=== PATIENT | female | born 1955 | race African-American/Black ===

== ENCOUNTER 2016-06-21 16:28 | Emergency (ER) | payer OTHER ==
[~2016-06-21] VITALS: Ht 165.1 cm; Wt 83.0 kg
[2016-06-21] MEDS ORDERED: NKM (16:37)
[2016-06-21 18:03] VITALS: BP 156/88
[2016-06-21] MEDS ORDERED: METFORMIN HCL500 M1 ORAL (18:09)
[2016-06-21] MEDS ORDERED: NORVASC5 MG ORAL (18:09)
[2016-06-21 18:17] VITALS: BP 156/88
--- NOTE | 2016-06-22 21:55 | Emergency Room Report ---
History of Present Illness General Chief Complaint: Hypertension Source: Patient Present Illness HPI 61 YO F presents with elevated BP. No prior history of HTN but states "when I was at [facility] they gave me something for BP" but patient left AMA and stated she didnt get any Rx. She also states she thinks she was told she is diabetic but also didnt get anything for that. Denies headache, chest pain, SOB, abd pain, nausea/vomiting, polydipsia/polyuria, dysuria. Allergies: Coded Allergies: No Known Allergies (Unverified , 06/21/16) Patient History Past Medical History: DM, HTN Past Surgical History: none Pertinent Family History: none Social History: Denies: alcohol use, drug use, smoking Now: No Immunizations: UTD Reviewed Nursing Documentation: PMH: Agreed, PSxH: Agreed Nursing Documentation-PMH Hx Asthma: Yes Review of Systems All Other Systems: negative except mentioned in HPI Physical Exam Vital Signs Date Time Temp Pulse Resp B/P Pulse Ox O2 Delivery O2 Flow Rate FiO2 06/21/16 16:33 98.1 94 16 161/97 100 Room Air Sp02 EP Interpretation: reviewed, abnormal General Appearance: normal inspection, well appearing, no apparent distress, alert, GCS 15, non-toxic Head: normocephalic, atraumatic Eyes: bilateral eye EOMI, bilateral eye PERRL ENT: normal ENT inspection, hearing grossly normal, normal voice Neck: normal inspection, full range of motion, supple, no bony tend Respiratory: normal inspection, lungs clear, normal breath sounds, no respiratory distress, no retraction, no wheezing Cardiovascular #1: regular rate, rhythm, no edema Gastrointestinal: normal inspection, normal bowel sounds, non tender, soft, no guarding, no hernia Genitourinary: no CVA tenderness Musculoskeletal: normal inspection, back normal, normal range of motion, Ghassan' s Sign negative Neurologic: normal inspection, alert, oriented x3, responsive, driver starting gate III-XII nml as tested, motor strength/tone normal, speech normal Psychiatric: normal inspection, judgement/insight normal, mood/affect normal Skin: normal inspection, normal color, no rash Medical Decision Making Diagnostic Impression: Primary Impression: Diabetes Additional Impression: Hypertension Qualified Codes: I10 - Essential (primary) hypertension ER Course 61 YO F with elevated BP and elevated glucose. Asymptomatic. No signs of focal neuro deficits and low suspicion for end-organ damage. BP improved with PO norvasc Elevated glucose in ED >200; Will also start patient on Metformin Patient does NOT currently have a PMD so will Rx Metormin and Novasc with strong recommendation for PMD followup Patient's daughter is bedside, also understands importance of followup Last Vital Signs Date Time Temp Pulse Resp B/P Pulse Ox O2 Delivery O2 Flow Rate FiO2 06/21/16 18:17 98.1 76 16 156/88 100 Room Air Status: improved Disposition: HOME, SELF-CARE Condition: Improved Scripts Amlodipine Besylate (Norvasc) 5 Mg Tablet 5 MG ORAL DAILY for 30 Days, #30 TAB Prov: DEVENDRA SINGH M.D. 06/21/16 Metformin Hcl* (METFORMIN HCL*) 500 Mg Tablet 500 MG ORAL TWICE A DAY for 30 Days, #60 TAB Prov: DEVENDRA SINGH M.D. 06/21/16 Patient Instructions: Hyperglycemia, [id number]-[id number], Hypertension, [id number] Additional Instructions: - Take Norvasc 5mg every for high BP - Take Metformin twice daily for DM - Follow up with a primary care doctor in 2-3 days DEVENDRA SINGH M.D. Jun 22, 2016 21:55
--- NOTE | 2016-07-11 14:22 | Cardiology Report ---
APPROVED REPORT EKG Measurement Heart [id number] CA 150P65 [id number] Normal sinus rhythm Rightward axis Borderline ECG
== END 2016-06-21 18:37 | disposition home or self-care (01) ==
LOC: EMR 18:04
DX: I10 Essential (primary) hypertension (principal); E11.9 Type 2 diabetes mellitus without complications; J45.909 Unspecified asthma, uncomplicated
CPT/HCPCS: 82962; 93005; 99284

== ENCOUNTER 2017-05-29 15:04 | Emergency (ER) | payer MEDICAID, OTHER ==
[~2017-05-29] VITALS: Ht 165.1 cm; Wt 84.4 kg
[~2017-05-29 15:04] MED LIST: METFORMIN HCL500 M1 ORAL; NKM; NORVASC5 MG ORAL
--- NOTE | 2017-05-29 16:26 | Emergency Room Report ---
History of Present Illness General Chief Complaint: Headache Source: Patient, Family Member - Daughter Present Illness HPI 62-year-old female patient presents ER complaining of headache and breathing difficulty. Patient also complains of purulent cough. Patient reports symptoms have been present since last ; states she was seen in [facility] for diabetes, hypertension, atrial fibrillation, CHF. States she was discharged with medications. Patient reports breathing symptoms have persisted since that time. Patient also complains of dizziness. Denies visual changes, loss of vision, hearing changes, ringing in ears. Reports history of asthma; denies use of inhaler. Patient complains of wheezing. Reports use of nasal spray at home for congestion; reports no relief of symptoms. Reports history of diabetes; states she took insulin today; reports she does not have accucheck to monitor blood glucose because it broke. Patient denies fever, nausea, vomiting, rash. Allergies: Coded Allergies: No Known Allergies (Unverified , 06/21/16) Patient History Past Medical History: see triage record, CHF, AFib, asthma Immunizations: UTD Reviewed Nursing Documentation: PMH: Agreed, PSxH: Agreed Nursing Documentation-PMH Hx Hypertension: Yes Hx Asthma: Yes Hx Diabetes: Yes Review of Systems All Other Systems: negative except mentioned in HPI Physical Exam Vital Signs Date Time Temp Pulse Resp B/P (MAP) Pulse Ox O2 Delivery O2 Flow Rate FiO2 05/29/17 15:16 98.4 75 16 159/95 97 Room Air Sp02 EP Interpretation: reviewed, normal General Appearance: no apparent distress, alert, GCS 15, non-toxic Head: normocephalic, atraumatic Eyes: bilateral eye normal inspection, bilateral eye PERRL, bilateral eye EOMI ENT: hearing grossly normal, normal pharynx, no angioedema, normal voice, TMs + canals normal, uvula midline, nasal congestion Neck: full range of motion, supple/symm/no masses Respiratory: no rhonchi, no respiratory distress, no retraction, no accessory muscle use, wheezing - intermittent left lower lung Cardiovascular #1: regular rate, rhythm Gastrointestinal: normal bowel sounds, non tender, soft, non-distended, no guarding, no rebound Musculoskeletal: back normal, digits/nails normal, gait/station normal, normal range of motion, non-tender Neurologic: alert, oriented x3, responsive, plastic battery assembler III-XII nml as tested, motor strength/tone normal, sensory intact, speech normal Psychiatric: mood/affect normal Skin: no rash, warm/dry, palpation normal, well hydrated, normal turgor, other - 5cm lipoma thoracic back, no erythema, no draining, no TTP Lymphatic: no adenopathy Medical Decision Making PA Attestation Dr. Ivey is my supervising Physician whom patient management has been discussed with. Diagnostic Impression: Primary Impression: Upper respiratory infection Additional Impressions: Elevated brain natriuretic peptide (BNP) level Elevated blood sugar level ER Course Pt presents to ED c/o asthma symptoms. DDX considered but are not limited to asthma, viral URI, influenza, pneumonia, sinusitis Began cardiac workup VITAL SIGNS are WNL, patient is afebrile. ORDERS: None required at this time, diagnosis is clinical. ER COURSE: Labs below; results reviewed with patient; patient instructed to followup with primary care for abnormal results. Patient states understanding and agreement to treatment plan. Troponin negative EKG negative for atrial fibrillation CXR negative for acute disease. Following negative results patient given breathing treatment. Albuterol/Atrovent breathing treatment provided Following treatment patient states no longer having difficulty with breathing; complains of nasal congestion. Patient informed of continued use of Afrin spray can lead to rebound congestion. Patient states understanding. Patient is resting comfortably, in no acute distress. Patient seen and evaluated by Dr. Ivey, agrees to treatment plan. Meclizine provided for patient dizziness; patient reports improvement of symptoms following administration of medication. DISCHARGE: -Rx provided for Motrin; patient reports she does not like Tylenol. -Rx provided for Tamiflu -Rx provided for Promethazine Hcl At this time pt is stable for d/c to home. Patient is nontoxic appearing, in no acute distress, smiling and laughing. Patient to take medications as instructed Will provide with patient care instructions and any necessary prescriptions. Care plan and follow-up instructions provided. Patient instructed to follow-up with primary care provider in 3 - 5 days. Patient questions asked and answered. ER precautions given. Patient instructed to return to ER immediately for any new or worsening of symptoms including but not limited to increasing SOB, persistent fever. Labs Test 05/29/17 16:00 White Blood Count 5.7 K/UL (4.8-10.8) Red Blood Count 5.65 M/UL (4.20-5.40) Hemoglobin 12.4 G/DL (12.0-16.0) Hematocrit 39.2 % (37.0-47.0) Mean Corpuscular Volume 69 FL (80-99) Mean Corpuscular Hemoglobin 21.9 PG (27.0-31.0) Mean Corpuscular Hemoglobin Concent 31.6 G/DL (32.0-36.0) Red Cell Distribution Width 12.5 % (11.6-14.8) Platelet Count 269 K/UL (150-450) Mean Platelet Volume 9.9 FL (6.5-10.1) Neutrophils (%) (Auto) 43.3 % (45.0-75.0) Lymphocytes (%) (Auto) 46.9 % (20.0-45.0) Monocytes (%) (Auto) 8.5 % (1.0-10.0) Eosinophils (%) (Auto) 0.7 % (0.0-3.0) Basophils (%) (Auto) 0.7 % (0.0-2.0) Prothrombin Time 10.7 SEC (9.30-11.50) Prothromb Time International Ratio 1.0 (0.9-1.1) Activated Partial Thromboplast Time 29 SEC (23-33) Sodium Level 137 MMOL/L (136-145) Potassium Level 4.0 MMOL/L (3.5-5.1) Chloride Level 97 MMOL/L (98-107) Carbon Dioxide Level 31 MMOL/L (21-32) Anion Gap 9 mmol/L (5-15) Blood Urea Nitrogen 12 mg/dL (7-18) Creatinine 1.0 MG/DL (0.55-1.30) Estimat Glomerular Filtration Rate > 60 mL/min (>60) Glucose Level 242 MG/DL (74-106) Calcium Level 9.0 MG/DL (8.5-10.1) Total Bilirubin 0.3 MG/DL (0.2-1.0) Aspartate Amino Transf (AST/SGOT) 18 U/L (15-37) Alanine Aminotransferase (ALT/SGPT) 18 U/L (12-78) Alkaline Phosphatase 72 U/L (46-116) Total Creatine Kinase 174 U/L (26-308) Creatine Kinase MB 1.4 NG/ML (0.0-3.6) Creatine Kinase MB Relative Index 0.8 Troponin I 0.000 ng/mL (0.000-0.056) Pro-B-Type Natriuretic Peptide 403 pg/mL (0-125) Total Protein 7.7 G/DL (6.4-8.2) Albumin 3.6 G/DL (3.4-5.0) Globulin 4.1 g/dL Albumin/Globulin Ratio 0.9 (1.0-2.7) EKG Diagnostic Results EKG Time: 16:18 Rate: normal Rhythm: NSR ST Segments: no acute changes Other Impression Reviewed by Dr. Loni IRAHETA given to the pt in ED: No PA Scribe Text Roland Ying PA-C Rhythm Strip Diag. Results EP Interpretation: yes Rate: 80 Rhythm: NSR, no PVC's, no ectopy PA Scribe Text Roland Ying PA-C Chest X-Ray Diagnostic Results Chest X-Ray Diagnostic Results : Chest X-Ray Ordered: Yes # of Views/Limited/Complete: 1 View Indication: Chest Pain EP Interpretation: No PA Xray: Interpretation reviewed, by supervising MD, and agrees with findings. Interpretation: no consolidation, no effusion, no pneumothorax, no acute cardiopulmonary disease Impression: No acute disease PA Scribe Text Roland Ying PA-C Last Vital Signs Date Time Temp Pulse Resp B/P (MAP) Pulse Ox O2 Delivery O2 Flow Rate FiO2 05/29/17 15:16 98.4 75 16 159/95 97 Room Air Status: improved Reevaluation Impression Following breathing treatment, lungs clear to auscultation, no wheezes, rhonchi , rales. Disposition: HOME, SELF-CARE Condition: Stable Scripts Ibuprofen* (MOTRIN*) 600 Mg Tablet 600 MG ORAL Q8H Y for For Pain, #30 TAB 0 Refills Prov: Carl Ying.AMike 05/29/17 Promethazine Hcl (PROMETHAZINE HCL*) 6.25 Mg/5 Ml Syrup 5 ML ORAL Q8H, #120 ML 0 Refills Prov: Carl Ying.AMike 05/29/17 Oseltamivir Phosphate (Tamiflu) 75 Mg Capsule 75 MG ORAL TWICE A DAY for 5 Days, #10 CAP Prov: Carl Ying.Eron 05/29/17 Patient Instructions: Asthma, Adult, Sqxi-hq-Anmh, Heart Failure, Rqhp-[id number]-Scuf , Upper Respiratory Infection, Adult, Ehvh-lf-Sbqi Additional Instructions: Followup with primary care provider in 2-3 days regarding elevated BNP and diabetes management. Discuss previous hospital visit findings with primary care provider. Use inhaler at home as needed for breathing difficulty. Discontinue use of nasal spray. Take medications as directed. Patient questions asked and answered. ER precautions given, patient instructed to return to ER immediately for any new or worsening of symptoms. Carl Ying May 29, 2017 16:26
[2017-05-29 16:35] LABS: BASOPHILS % (AUTO) 0.7 % (0.0-2.0); EOSINOPHILS % (AUTO) 0.7 % (0.0-3.0); HEMATOCRIT 39.2 % (37.0-47.0); HEMOGLOBIN 12.4 G/DL (12.0-16.0); LYMPHOCYTES % (AUTO) 46.9 % (20.0-45.0); MEAN CORPUSCULAR VOLUME 69 FL (80-99); MONOCYTES % (AUTO) 8.5 % (1.0-10.0); NEUTROPHILS % (AUTO) 43.3 % (45.0-75.0); PLATELET COUNT 269 K/UL (150-450); RED BLOOD COUNT 5.65 M/UL (4.20-5.40); RED CELL DISTRIBUTION WIDTH 12.5 % (11.6-14.8); WHITE BLOOD COUNT 5.7 K/UL (4.8-10.8)
[2017-05-29 16:44] LABS: ANION GAP 9 mmol/L (5-15); BLOOD UREA NITROGEN 12 mg/dL (7-18); CARBON DIOXIDE 31 MMOL/L (21-32); CHLORIDE 97 MMOL/L (98-107); SODIUM 137 MMOL/L (136-145)
--- NOTE | 2017-05-29 16:54 | Diagnostic Imaging Report ---
Indication: Chest pain Technique: One view of the chest Comparison: none Findings: The heart is borderline enlarged. The aorta is tortuous and ectatic. Lungs and pleural spaces are clear Impression: No acute process Borderline cardiomegaly
[2017-05-29 16:58] LABS: ALANINE AMINOTRANSFERASE 18 U/L (12-78); ALBUMIN 3.6 G/DL (3.4-5.0); ALBUMIN/GLOBULIN RATIO 0.9 (1.0-2.7); ALKALINE PHOSPHATASE 72 U/L (46-116); ASPARTATE AMINO TRANSFERASE 18 U/L (15-37); BILIRUBIN,TOTAL 0.3 MG/DL (0.2-1.0); CKMB 1.4 NG/ML (0.0-3.6); CREATINE KINASE 174 U/L (26-308)
[2017-05-29] MEDS ORDERED: Albuterol/Ipratropium 3ml neb HHN ONE (17:00)
[2017-05-29 18:00] VITALS: BP 150/90
[2017-05-29] MEDS ORDERED: TAMIFLU75 MG ORAL (18:04)
[2017-05-29] MEDS ORDERED: PROMETHAZI6.25 MG/1 ORAL (18:04)
[2017-05-29] MEDS ORDERED: IBUPROFEN600 MG ORAL (18:07)
[2017-05-29] MEDS ORDERED: TYLENOL EXTRA500 MG ORAL (18:18)
[2017-05-29 18:45] VITALS: BP 150/90
[2017-05-29] MEDS ORDERED: Meclizine 25mg tab ORAL PRN (18:45)
--- NOTE | 2017-05-30 17:16 | Cardiology Report ---
APPROVED REPORT EKG Measurement Heart [id number] [place] 142P36 [id number] Normal sinus rhythm Septal infarct, age undetermined Abnormal ECG
== END 2017-05-29 18:45 | disposition home or self-care (01) ==
LOC: EMR 16:43
DX: J06.9 Acute upper respiratory infection, unspecified (principal); E11.65 Type 2 diabetes mellitus with hyperglycemia; I11.0 Hypertensive heart disease with heart failure; I50.9 Heart failure, unspecified; J45.909 Unspecified asthma, uncomplicated; I48.91 Unspecified atrial fibrillation; R79.89 Other specified abnormal findings of blood chemistry
CPT/HCPCS: 36415; 71045; 80053; 82550; 82553; 82962; 83880; 84484; 85025; 85610; 85730; 93005; 94640; 94664; 99284; J7620

== ENCOUNTER 2018-12-17 02:06 | Emergency (ER) | payer MEDICAID ==
[~2018-12-17] VITALS: Ht 162.6 cm; Wt 81.6 kg
[~2018-12-17 02:06] MED LIST changes: +IBUPROFEN600 MG ORAL; +LANTUS SOL100 UNIT/1 SUBQ; +LOSARTAN POTASS50 MG ORAL; +METFORMIN HCL1000 M1 ORAL; +METOPROLOL SUCC50 MG ORAL; +NITROFURANTOIN100 M2 ORAL; +PROMETHAZI6.25 MG/1 ORAL; +TAMIFLU75 MG ORAL; +TYLENOL EXTRA500 MG ORAL; +XARELTO20 MG ORAL
[2018-12-17 02:30] VITALS: BP 113/82
--- NOTE | 2018-12-17 02:38 | Emergency Room Report ---
History of Present Illness General Chief Complaint: Abnormal Labs Source: Patient Present Illness HPI This is a 63-year-old female with history of high blood pressure and diabetes. She has been off oral medication and not checking her blood pressure or her glucose. She says she has been trying to eat healthy by drinking the supplements. According to her daughter she still have the same diet. She presents with chief complaint of feeling dizzy, headache, palpitation. Blood pressure was elevated at home per daughter. She thinks her glucose is also elevated. No focal deficit. Allergies: Coded Allergies: No Known Allergies (Unverified , 06/21/16) Patient History Past Medical History: see triage record, old chart reviewed, DM, HTN Past Surgical History: other Pertinent Family History: none Social History: Denies: smoking Now: No Immunizations: other Reviewed Nursing Documentation: PMH: Agreed; PSxH: Agreed Nursing Documentation-PMH Hx Hypertension: Yes Hx Asthma: Yes Hx Diabetes: Yes Review of Systems Eye: Denies: eye pain, blurred vision ENT: Denies: ear pain, nose congestion, throat swelling Respiratory: Denies: cough, shortness of breath Cardiovascular: Reports: palpitations; Denies: chest pain Gastrointestinal: Denies: abdominal pain, diarrhea, nausea, vomiting Musculoskeletal: Denies: back pain, joint pain Skin: Denies: rash Neurological: Reports: headache, dizziness; Denies: numbness Endocrine: Denies: increased thirst, increased urine Hematologic/Lymphatic: Denies: easy bruising All Other Systems: negative except mentioned in HPI Physical Exam Vital Signs Date Time Temp Pulse Resp B/P (MAP) Pulse Ox O2 Delivery O2 Flow Rate FiO2 12/17/18 02:30 98.2 80 18 113/82 (92) 94 Room Air Vitals normal Sp02 EP Interpretation: reviewed, normal General Appearance: well appearing, no apparent distress, alert Head: normocephalic, atraumatic Eyes: bilateral eye PERRL, bilateral eye EOMI ENT: hearing grossly normal, normal pharynx Neck: full range of motion, supple, no meningismus Respiratory: chest non-tender, lungs clear, normal breath sounds Cardiovascular #1: regular rate, rhythm, no murmur Gastrointestinal: normal bowel sounds, non tender, no mass, no organomegaly, no bruit, non-distended Musculoskeletal: back normal, gait/station normal, normal range of motion Psychiatric: mood/affect normal Procedures Critical Care Time Critical Care Time Critical care is mandated in this patient who presented with new onset rapid atrial fibrillation. Patient require my urgent intervention to attenuate the risks of metabolic collapse which may lead to cardiovascular collapse and . Critical care time is 35 minutes excluding any reportable procedure. Critical care time included evaluation, multiple reevaluation, looking at old charts, interpreting laboratory and diagnostic data, discussing case with patient and family and consultants, and charting. Medical Decision Making Diagnostic Impression: Primary Impression: Rapid atrial fibrillation Additional Impressions: CHF exacerbation Qualified Codes: I50.9 - Heart failure, unspecified Hyperglycemia due to type 2 diabetes mellitus Qualified Codes: E11.65 - Type 2 diabetes mellitus with hyperglycemia Hypertension Qualified Codes: I10 - Essential (primary) hypertension ER Course Patient presents with dizziness and palpitation. She said is been ongoing for 2 days now. She is in her look like rapid A. fib. This is causing CHF. She is slightly hypoxic on room air. She diuresed well after Lasix. Rate control with Cardizem. No evidence of TIA or CVA. Patient heart rate is now controlled in the 70s and 80s. Appear to be in sinus. Blood pressure stable. Patient diuresed well. She is stable for transfer. I discussed the case with Dr. Nath who accept her transfer to [facility]. EKG Diagnostic Results Rate: tachycardiac Rhythm: other - atrial fib ST Segments: other - NSST changes ASA given to the pt in ED: Yes Rhythm Strip Diag. Results EP Interpretation: yes Rate: 100 Rhythm: no PVC's, no ectopy Other Impression afib Chest X-Ray Diagnostic Results Chest X-Ray Diagnostic Results : Chest X-Ray Ordered: Yes # of Views/Limited/Complete: 1 View Indication: Shortness of Breath EP Interpretation: Yes Interpretation: no consolidation, no effusion, no pneumothorax, other - CM with chf Impression: Other - chf Electronically Signed by: Larry Jordan MD CT/MRI/US Diagnostic Results CT/MRI/US Diagnostic Results : Imaging Test Ordered: CT head Impression Read by radiologist. Neg Last Vital Signs Date Time Temp Pulse Resp B/P (MAP) Pulse Ox O2 Delivery O2 Flow Rate FiO2 12/17/18 02:30 98.2 80 18 113/82 (92) 94 Room Air Status: improved Disposition: XFER SHT-TRM HOSP Condition: Stable Larry Jordan MD Dec 17, 2018 02:38
--- NOTE | 2018-12-17 02:38 | NUR ---
ED Nurse Note: Patient presents with complaints of elevated blood sugar. Patient accompanied by family member.
[2018-12-17] MEDS ORDERED: dilTIAZem HCl 25mg/5ml Inj IVP ONE ×3 (02:45→04:00)
--- NOTE | 2018-12-17 02:50 | NUR ---
ED Nurse Note: Labs drawn and sent down.
--- NOTE | 2018-12-17 02:54 | NUR ---
ED Nurse Note: Patient went down for CT>
--- NOTE | 2018-12-17 03:06 | NUR ---
ED Nurse Note: Patient returned from CT.
[2018-12-17 03:10] LABS: BASOPHILS % (AUTO) 1.4 % (0.0-2.0); EOSINOPHILS % (AUTO) 1.1 % (0.0-3.0); HEMATOCRIT 40.8 % (37.0-47.0); HEMOGLOBIN 12.5 G/DL (12.0-16.0); LYMPHOCYTES % (AUTO) 43.4 % (20.0-45.0); MEAN CORPUSCULAR VOLUME 70 FL (80-99); MONOCYTES % (AUTO) 7.1 % (1.0-10.0); NEUTROPHILS % (AUTO) 46.9 % (45.0-75.0); PLATELET COUNT 250 K/UL (150-450); RED CELL DISTRIBUTION WIDTH 13.3 % (11.6-14.8); WHITE BLOOD COUNT 7.7 K/UL (4.8-10.8)
[2018-12-17 03:17] LABS: ANION GAP 10 mmol/L (5-15); BLOOD UREA NITROGEN 17 mg/dL (7-18); CARBON DIOXIDE 25 MMOL/L (21-32); CHLORIDE 110 MMOL/L (98-107); CREATININE 1.1 MG/DL (0.55-1.30); POTASSIUM 4.2 MMOL/L (3.5-5.1); SODIUM 145 MMOL/L (136-145)
[2018-12-17 03:31] LABS: ALANINE AMINOTRANSFERASE 51 U/L (12-78); ALBUMIN 3.2 G/DL (3.4-5.0); ALBUMIN/GLOBULIN RATIO 0.8 (1.0-2.7); ALKALINE PHOSPHATASE 87 U/L (46-116); ASPARTATE AMINO TRANSFERASE 67 U/L (15-37); BILIRUBIN,TOTAL 0.6 MG/DL (0.2-1.0); CKMB 2.7 NG/ML (0.0-3.6); CREATINE KINASE 232 U/L (26-308)
--- NOTE | 2018-12-17 03:34 | NUR ---
ED Nurse Note: Patient's daughter Hayden informed of admittance, please call with information at [phone] once fully processed.
[2018-12-17] MEDS ORDERED: Insulin Human Regular 100units/ml 3ml IV ONE (04:00)
[2018-12-17] MEDS ORDERED: Enoxaparin 80mg Inj SUBQ ONE (04:15)
[2018-12-17] MEDS ORDERED: Aspirin Baby 81mg ORAL ONE (04:15)
--- NOTE | 2018-12-17 04:30 | NUR ---
ED Nurse Note: Patient resting comfortably, vital signs are stable, heart rate is within normal range.
[2018-12-17 04:48] VITALS: BP 133/88
--- NOTE | 2018-12-17 05:35 | NUR ---
ED Nurse Note: Patient is reasting comfortably with no s/s of acute distress, will continue to monitor.
[2018-12-17 05:38] LABS: APPEARANCE,URINE CLEAR; BILIRUBIN, URINE NEGATIVE (NEGATIVE); COLOR,URINE PALE YELLOW; GLUCOSE, URINE (UA) 4+ (NEGATIVE); KETONES,URINE NEGATIVE (NEGATIVE); LEUKOCYTE ESTERASE ,URINE 2+ (NEGATIVE); NITRITE,URINE NEGATIVE (NEGATIVE); PH,URINE 6 (4.5-8.0); PROTEIN,URINE NEGATIVE (NEGATIVE); UROBILINOGEN,URINE NORMAL MG/DL (0.0-1.0)
--- NOTE | 2018-12-17 06:39 | NUR ---
ED Nurse Note: Patient is awake, alert and reports no pain or discomfort at this time.
--- NOTE | 2018-12-17 06:54 | NUR ---
ED Nurse Note: Called and gave report to Patric WOODY over at [facility].
[2018-12-17 07:10] VITALS: BP 128/82
--- NOTE | 2018-12-17 07:10 | NUR ---
ED Nurse Note: Received patient from Bridget WOODY. patient is resting comfortably in bed, auditor internal applied, vss.
[2018-12-17] MEDS ORDERED: NKM (07:28)
--- NOTE | 2018-12-17 07:30 | NUR ---
ED Nurse Note: patient provided with breakfast tray.
[2018-12-17 08:30] VITALS: BP 128/82
--- NOTE | 2018-12-17 08:30 | NUR ---
ED Nurse Note: Patient is being transferred via ambulance in stable condition with all of her belongings. patient is ambulatory with minimum assistance.
--- NOTE | 2018-12-17 10:45 | Diagnostic Imaging Report ---
Indications: Headache Technique: Spiral acquisitions obtained through the brain. Angled axial and coronal 5 x 5 mm slices were reconstructed. Total dose length product 1344.42 mGycm. CTDI vol(s) 70.38 mGy. Dose reduction achieved using automated exposure control Comparison: None. Findings: No acute intracranial hemorrhage or edema. No mass effect nor midline shift. Avila-white differentiation is normal. Normal size ventricles and extra-axial CSF spaces. Visualized orbits are unremarkable. The visualized sinuses are clear. The mastoids are underpneumatized bilaterally. The calvarium is intact. Impression: Negative This agrees with the preliminary interpretation provided overnight by [facility] teleradiology service. The CT scanner at [facility] is accredited by the [employer] and the scans are performed using protocols designed to limit radiation exposure to as low as reasonably achievable to attain images of sufficient resolution adequate for diagnostic evaluation.
--- NOTE | 2018-12-17 11:02 | Diagnostic Imaging Report ---
Indication: Shortness of breath Technique: One view of the chest Comparison: 05/20/2018 Findings: Body habitus limits evaluation. Inspiration is suboptimal, with resultant crowding of the bronchovascular markings. There is equivocal minimal interstitial congestion. The heart is borderline enlarged. No focal airspace consolidation. No definite effusions. Impression: Hypoventilatory exam demonstrating equivocal minimal interstitial congestion. Correlate with clinical findings
--- NOTE | 2018-12-17 11:13 | Cardiology Report ---
APPROVED REPORT EKG Measurement Heart [id number] [place] [id number] [id number] Normal sinus rhythm Possible Anterior infarct, age undetermined Abnormal ECG
--- NOTE | 2018-12-17 11:13 | Cardiology Report ---
APPROVED REPORT EKG Measurement Heart [id number] Supraventricular tachycardia Nonspecific ST abnormality Abnormal ECG
== END 2018-12-17 08:30 | disposition short-term general hospital (02) ==
LOC: EMR 03:05
DX: I48.91 Unspecified atrial fibrillation (principal); I11.0 Hypertensive heart disease with heart failure; I50.9 Heart failure, unspecified; E11.65 Type 2 diabetes mellitus with hyperglycemia; J45.909 Unspecified asthma, uncomplicated; R51 Headache
CPT/HCPCS: 36415; 70450; 71045; 80053; 81001; 82550; 82553; 82962; 83880; 84484; 85025; 87086; 93005; 96361; 96372; 96374; 96375; 96376; 99291; J1650; J1815; J1940; J2405